=== PATIENT | female | born 1990 | race African-American/Black ===

== ENCOUNTER 2017-11-02 19:53 | Emergency (ER) | payer BC, OTHER ==
[2017-11-02 19:57] VITALS: BP 129/87; PULSE 102; TEMP 98.2; BMI 28.1
--- NOTE | 2017-11-02 20:06 | PDOC ---
Rapid Medical Evaluation Chief Complaint: Respiratory Time Seen by Provider: 11/02/17 19:57 Medical Evaluation: Allergies Allergy/AdvReac Type Severity Reaction Status Date / Time No Known Allergies Allergy Verified 11/02/17 19:57 Vital Signs Temp Pulse Resp BP Pulse Ox 98.2 F 102 H 20 129/87 99 11/02/17 19:55 11/02/17 19:55 11/02/17 19:55 11/02/17 19:55 11/02/17 19:55 The patient presents with a chief complaint of: cough, URI x 2 weeks and cough x 2 weeks not improving, denies PMH. + sick contact: kids with similar symptoms I have performed a brief in-person evaluation of this patient; Pertinent physical exam findings: breath sounds clear, + nasal congestion I have ordered the following: Urine , chest xray The patient will proceed to the ED for further evaluation. 11/02/17 20:06
--- NOTE | 2017-11-02 20:34 | PDOC ---
History of Present Illness - General Chief Complaint: Respiratory Stated Complaint: COLD SYMPTOMS Time Seen by Provider: 11/02/17 19:57 History Source: Patient Exam Limitations: No Limitations - History of Present Illness Initial Comments: 11/02/17 20:30 27-year-old female with history of asthma presents to the emergency department complaining of fever for approximately 5 days one week ago. Patient states she started having a nonproductive cough 10 days without chills, nausea/vomiting, headache, dizziness, lightheadedness, facial pain, sore throat, neck pain/ stiffness, back pains, chest pain, shortness of breath, abdominal pains, flank pains, urinary symptoms: Frequency/urgency/hesitancy, hematuria. Timing/Duration: reports: week ([id number]) Past History - Past Medical History Allergies/Adverse Reactions: Allergies Allergy/AdvReac Type Severity Reaction Status Date / Time No Known Allergies Allergy Verified 11/02/17 19:57 Home Medications: Ambulatory Orders Azithromycin [Zithromax -] 250 mg PO DAILY 4 Days #4 tablet 11/02/17 Prednisone [Deltasone -] 20 mg PO DAILY #5 tablet 11/02/17 COPD: No - Suicide/Smoking/Psychosocial Hx Smoking History: Never smoked Review of Systems - Review of Systems Able to Perform ROS?: Yes Comments:: 11/02/17 20:31 CONSTITUTIONAL: fever x 1 week ago for 5 days Absent: chills, diaphoresis, generalized weakness, malaise, loss of appetite HEENT: Absent: rhinorrhea, nasal congestion, throat pain, throat swelling, difficulty swallowing, mouth swelling, ear pain, eye pain, visual Changes CARDIOVASCULAR: Absent: chest pain, loss of consciousness, palpitations, irregular heart rate, peripheral edema RESPIRATORY: +cough Absent: shortness of breath, dyspnea with exertion, orthopnea, wheezing, stridor, hemoptysis GASTROINTESTINAL: Absent: abdominal pain, abdominal distension, nausea, vomiting, diarrhea, constipation, melena, hematochezia GENITOURINARY: Absent: dysuria, frequency, urgency, hesitancy, hematuria, flank pain, genital pain MUSCULOSKELETAL: Absent: myalgia, arthralgia, joint swelling SKIN: Absent: rash, itching, pallor HEMATOLOGIC/IMMUNOLOGIC: Absent: easy bleeding, easy bruising, lymphadenopathy, frequent infections ENDOCRINE: Absent: unexplained weight gain, unexplained weight loss, heat intolerance, cold intolerance NEUROLOGIC: Absent: headache, focal weakness or paresthesias, dizziness, unsteady gait, seizure, mental status changes, bladder or bowel incontinence PSYCHIATRIC: Absent: anxiety, depression, suicidal or homicidal ideation, hallucinations. Is the patient limited Polish proficient: No *Physical Exam - Vital Signs Last Vital Signs Temp Pulse Resp BP Pulse Ox 98.2 F 102 H 20 129/87 99 11/02/17 19:55 11/02/17 19:55 11/02/17 19:55 11/02/17 19:55 11/02/17 19:55 - Physical Exam Comments: 11/02/17 20:32 GENERAL: Well developed, well nourished. Awake and alert. No acute distress. HEENT: Normocephalic, atraumatic. PERRLA, EOMI. No conjunctival pallor. Sclera are non- icteric. Moist mucous membranes. Oropharynx is clear. NECK: Supple. Full ROM. No JVD. Carotid pulses 2+ and symmetric, without bruits. No thyromegaly. No lymphadenopathy. CARDIOVASCULAR: Regular rate and rhythm. No murmurs, rubs, or gallops. Distal pulses are 2+ and symmetric. PULMONARY: No evidence of respiratory distress. Lungs clear to auscultation bilaterally. No wheezing, rales or rhonchi. ABDOMINAL: Soft. Non-tender. Non-distended. No rebound or guarding. No organomegaly. Normoactive bowel sounds. MUSCULOSKELETAL Normal range of motion at all joints. No bony deformities or tenderness. No CVA tenderness. EXTREMITIES: No cyanosis. No clubbing. No edema. No calf tenderness. SKIN: Warm and dry. Normal capillary refill. No rashes. No jaundice. NEUROLOGICAL: Alert, awake, appropriate. Cranial nerves 2-12 intact. No deficits to light touch and temperature in face, upper extremities and lower extremities. No motor deficits in the in face, upper extremities and lower extremities. Normoreflexic in the upper and lower extremities. Normal speech. Toes are down- going bilaterally. Gait is normal without ataxia. PSYCHIATRIC: Cooperative. Good eye contact. Appropriate mood and affect. ED Treatment Course - RADIOLOGY Radiograph Interpretation: 11/02/17 20:32 CXR NAD Progress Note - Progress Note Progress Note: Patient refuses U agrees to a chest x-ray. *DC/Admit/Observation/Transfer Diagnosis at time of Disposition: Acute bronchitis Qualifiers: Bronchitis organism: unspecified organism Qualified Code(s): J20.9 - Acute bronchitis, unspecified - Discharge Dispostion Condition at time of disposition: Stable Admit: No - Prescriptions Prescriptions: Azithromycin [Zithromax -] 250 mg PO DAILY 4 Days #4 tablet Prednisone [Deltasone -] 20 mg PO DAILY #5 tablet - Referrals Referrals: Edwige Rey MD [Primary Care Provider] - - Patient Instructions Printed Discharge Instructions: DI for Acute Bronchitis Additional Instructions: Rest Increase fluids No work for 2 days Tylenol alternating with motrin as needed for fever/chills Follow up with your physician in 2 days Return to the ER for severe/persistent/worsening symptoms - Post Discharge Activity Forms/Work/School Notes: Back to Work
[2017-11-02] MEDS ORDERED: AZITHROMYCIN 250 MG TABLET PO ONE (20:39)
[2017-11-02] MEDS ORDERED: predniSONE 20 MG TABLET (UD) PO ONE (20:43)
[2017-11-02] MEDS ORDERED: AZITHROMYCIN 250 MG TABLET ONE (20:44)
[2017-11-02] MEDS ORDERED: predniSONE 20 MG TABLET (UD) ONE (20:47)
== END 2017-11-02 20:46 | disposition home or self-care (01) ==
LOC: JERFT 19:53
DX: J20.9 Acute bronchitis, unspecified (principal)
CPT/HCPCS: 71020-TC; 99281-25